=== PATIENT | female | born 1985 | race Two or more races ===

== ENCOUNTER 2019-01-02 05:23 | Day surgery (SDC) | payer OTHER ==
[~2019-01-02 05:23] MED LIST: LAMICTAL100 MG PO
[2019-01-02] MEDS ORDERED: RECTICARE30 GM TOP (08:52)
[2019-01-02] MEDS ORDERED: PERCOCET 5-3251 EACH PO (08:52)
[2019-01-02] MEDS ORDERED: KETOROLAC TROME10 MG PO (08:53)
== END 2019-01-02 13:39 | disposition home or self-care (01) ==
LOC: CIR.AMB 05:23
DX: K64.4 Residual hemorrhoidal skin tags (principal)